=== PATIENT | male | born 1995 | race Caucasian/White ===

== ENCOUNTER 2019-09-10 14:35 | Emergency (ER) | payer OTHER ==
[~2019-09-10] VITALS: Ht 182.9 cm; Wt 100.4 kg
[2019-09-10 14:53] VITALS: BP 125/80
[2019-09-10] MEDS ORDERED: ketorolac trometh inj. 60 MG/2 ML VIAL IM ONE (15:15)
[2019-09-10] MEDS ORDERED: ondansetron 4mg rapidly disintigrating tab PO ONE (15:15)
[2019-09-10] MEDS ORDERED: proCHLORperazine 10 MG/2 ml inj IM ONE (15:15)
[2019-09-10] MEDS ORDERED: acetaminophen 325mg tablet PO ONE (15:15)
[2019-09-10] MEDS ORDERED: ONDA4TAB6 PO (15:50)
== END 2019-09-10 16:19 | disposition home or self-care (01) ==
LOC: ER 14:36
DX: B34.9 Viral infection, unspecified (principal); R05 Cough; R51 Headache; J02.9 Acute pharyngitis, unspecified; M79.18 Myalgia, other site; Z79.899 Other long term (current) drug therapy
CPT/HCPCS: 99283